=== PATIENT | female | born 1990 | race Caucasian/White ===

== ENCOUNTER 2018-08-02 13:24 | Inpatient (IN) | payer BC ==
[~2018-08-02 13:24] MED LIST: Lidocaine 2% MPF 10 ML AMP (For Epidural Use) ONE
[2018-08-02] MEDS ORDERED: Zolpidem Tartrate 5 MG TAB PO PRN (21:42)
[2018-08-02] MEDS ORDERED: Misoprostol 200 MCG TAB PR PRN (21:42)
[2018-08-02] MEDS ORDERED: HYDROcodone/Acetaminophen 5/325 mg Tablet PO PRN ×2 (21:42)
[2018-08-02] MEDS ORDERED: NS w/ Oxytocin 10 units 500 ML IV SCH (21:42)
[2018-08-02] MEDS ORDERED: NS / Oxytocin 40 units/1000ml 1,000 ML IV PRN (21:42)
[2018-08-02] MEDS ORDERED: Ibuprofen 800 MG TAB PO PRN (21:42)
[2018-08-02] MEDS ORDERED: Promethazine HCl 25 MG/ML VIAL IM PRN (21:42)
[2018-08-02] MEDS ORDERED: Docusate 100 MG CAP PO PRN (21:42)
[2018-08-02] MEDS ORDERED: Lidocaine 1% (PF) 30 ML VIAL SC PRN (21:42)
[2018-08-02] MEDS ORDERED: Diphenoxylate HCl/Atropine Tablet PO PRN ×2 (21:42)
[2018-08-02] MEDS ORDERED: Acetaminophen 500 MG TAB PO PRN (21:42)
[2018-08-02] MEDS ORDERED: Butorphanol Tartrate 1 MG/ML VIAL SLOW IVP PRN (21:42)
[2018-08-02 22:04] VITALS: BMI 35.9
[2018-08-02] MEDS: Misoprostol 100 MCG TAB VAG SCH (22:26)
[2018-08-02 22:28] LABS: Hemoglobin 10.6 g/dL (12.0-16.0); Mean Corpuscular HGB CONC 34.1 g/dL (32.0-36.0); Mean Corpuscular Hemoglobin 25.9 pg (27.0-31.0); Mean Platelet Volume 9.5 fL (7.4-10.4); Platelet Count 277 thou/uL (130-400); RBC Distribution Width 21.7 % (11.5-14.5); White Blood Cell (WBC) Count 9.3 thou/uL (4.8-10.8)
[2018-08-02] MEDS: Lactated Ringer's 1,000 ML IV SCH (22:33)
[2018-08-02 23:03] LABS: HBSAg Index 0.13 S/CO (0-0.99); Hep B Surf Ag Non-Reactive S/CO (NonReactive); Syphilis Antibody Nonreactive (Nonreactive); Syphilis Antibody Index 0.02 S/CO (<1.00 Non-Reactive)
[2018-08-03] MEDS ORDERED: DISCONTINUE ALL PREVIOUS NARCOTICS FS SCH (02:45)
[2018-08-03] MEDS ORDERED: Lidocaine 1% PF 5 ML VIAL ONE (03:02)
[2018-08-03] MEDS ORDERED: Naloxone HCl 0.4 mg/ml Vial IVP PRN ×2 (03:30)
[2018-08-03] MEDS ORDERED: Promethazine HCl 25 MG/ML VIAL IM PRN (03:30)
[2018-08-03] MEDS ORDERED: Ondansetron HCl/PF 4 MG/2 ML Vial IVP PRN ×2 (03:30→18:03)
[2018-08-03] MEDS ORDERED: Acetaminophen 325 MG TAB PO PRN (03:30)
[2018-08-03] MEDS ORDERED: diphenhydrAMINE 50 MG/ML VIAL IVP PRN (03:30)
[2018-08-03] MEDS ORDERED: Lactated Ringer's 500 ML IV PRN (03:30)
[2018-08-03] MEDS ORDERED: Hydrocerin (Eucerin) Cream 120 gm Jar TOP PRN (03:30)
[2018-08-03] MEDS ORDERED: ePHEDrine/0.9% NaCl/PF SYRINGE 50 mg/10 ml SLOW IVP PRN (03:30)
[2018-08-03] MEDS ORDERED: fentaNYL Citrate/PF 400 MCG, Bupivacaine 0.5% 20 ML in Sodium Chloride 0.9% 72 ML EPIDURAL SCH (03:30)
[2018-08-03] MEDS ORDERED: Communication Order-Pharmacy FS SCH (03:30)
[2018-08-03] MEDS: Bupivacaine 0.5% 20 ML, fentaNYL Citrate/PF 400 MCG in Sodium Chloride 0.9% 72 ML EPIDURAL SCH ×4 (03:49→17:05)
[2018-08-03] MEDS: Lactated Ringer's 1,000 ML IV SCH ×2 (03:50→12:30)
[2018-08-03] MEDS: Misoprostol 100 MCG TAB VAG SCH (05:49)
[2018-08-03] MEDS: Ondansetron HCl/PF 4 MG/2 ML Vial IVP PRN ×2 (08:37→14:50)
[2018-08-03] MEDS ORDERED: Benzocaine/Menthol 20-0.5% 60 ML CAN TOP PRN (18:03)
[2018-08-03] MEDS ORDERED: Acetaminophen/Codeine 30-300mg Tablet PO PRN (18:03)
[2018-08-03] MEDS ORDERED: diphenhydrAMINE 25 MG CAP PO PRN (18:03)
[2018-08-03] MEDS ORDERED: Zolpidem Tartrate 5 MG TAB PO PRN (18:03)
[2018-08-03] MEDS ORDERED: Lanolin Ointment 7 GM TUBE TOP PRN (18:03)
[2018-08-03] MEDS ORDERED: Bisacodyl 10 MG SUPP PR PRN (18:03)
[2018-08-03] MEDS ORDERED: Milk Of Magnesia 30 ML UDCUP PO PRN (18:03)
[2018-08-03] MEDS ORDERED: Adacel (T-DAP) 0.5 ML VIAL IM ONE (18:03)
[2018-08-03] MEDS ORDERED: Preparation H Ointment 28 GM TUBE PR PRN (18:03)
[2018-08-03] MEDS ORDERED: Misoprostol 200 MCG TAB VAG SCH (18:15)
[2018-08-03] MEDS ORDERED: NS / Oxytocin 40 units/1000ml 1,000 ML IV SCH (18:15)
[2018-08-03] MEDS ORDERED: Misoprostol 200 MCG TAB ONE (18:23)
[2018-08-04] MEDS: Misoprostol 100 MCG TAB VAG SCH ×2 (00:02→00:03)
[2018-08-04] MEDS: Docusate Calcium (SURFAK) 240 MG CAP PO SCH ×3 (02:20→20:43)
[2018-08-04] MEDS: Ibuprofen 800 MG TAB PO SCH ×4 (02:20→20:43)
[2018-08-04 05:53] LABS: Hemoglobin 9.4 g/dL (12.0-16.0); Mean Corpuscular HGB CONC 32.3 g/dL (32.0-36.0); Mean Corpuscular Hemoglobin 25.1 pg (27.0-31.0); Mean Corpuscular Volume 77.7 fL (78.0-98.0); Mean Platelet Volume 8.8 fL (7.4-10.4); Platelet Count 204 thou/uL (130-400); RBC Distribution Width 21.4 % (11.5-14.5); Red Blood Cell (RBC) Count 3.74 mill/uL (4.20-5.40); White Blood Cell (WBC) Count 11.4 thou/uL (4.8-10.8)
[2018-08-04] MEDS: Acetaminophen/Codeine 30-300mg Tablet PO PRN ×4 (06:15→21:42)
[2018-08-04] MEDS: Prenatal Vitamin 1 TAB PO SCH (09:36)
[2018-08-04] MEDS: Ferrous Sulfate 325 MG TAB PO SCH ×2 (09:36→17:20)
[2018-08-05] MEDS: Ibuprofen 800 MG TAB PO SCH ×2 (05:56→14:59)
[2018-08-05 07:41] VITALS: TEMP 98.2
[2018-08-05] MEDS: Docusate Calcium (SURFAK) 240 MG CAP PO SCH (09:30)
[2018-08-05] MEDS: Prenatal Vitamin 1 TAB PO SCH (09:30)
[2018-08-05] MEDS: Ferrous Sulfate 325 MG TAB PO SCH (09:30)
[2018-08-05] MEDS: Acetaminophen/Codeine 30-300mg Tablet PO PRN (11:08)
[2018-08-05 12:38] VITALS: BP 159/82
== END 2018-08-05 16:25 | disposition home or self-care (01) | DRG 774 ==
LOC: L&D 21:17 → 3SW 08-03 20:35 → EDSTATUS 08-20 13:23
PROVIDERS: ADMIT Obstetrics & Gynecology; ATTEND Obstetrics & Gynecology
PROC: 10E0XZZ Delivery of Products of Conception, External Approach (ICD-10-PCS; principal; 2018-08-02)
DX: O76 Abnormality in fetal heart rate and rhythm complicating labor and delivery (principal); O10.92 Unspecified pre-existing hypertension complicating childbirth; Z3A.37 37 weeks gestation of pregnancy; O66.0 Obstructed labor due to shoulder dystocia; O69.81X0 Labor and delivery complicated by cord around neck, without compression, not applicable or unspecified; Z37.0 Single live birth
CPT/HCPCS: 36415; 51702; 85027; 86780; 86850; 86900; 86901; 87340; J2001; J2405; J3010; J3490; J7050

== ENCOUNTER 2020-10-16 07:55 | Emergency (ER) | payer BC ==
[2020-10-16 08:33] LABS: #Lymphocytes 2.1 thou/uL (1.20-3.40); #Monocytes 0.4 thou/uL (0.11-0.59); #Neutrophils 3.1 thou/uL (1.40-6.50); %Basophils 0.1 % (0.0-1.0); %Eosinophils 0.1 % (0.0-10.0); %Neutrophils 54.8 % (42.0-75.0); Hemoglobin 12.8 g/dL (12.0-16.0); Mean Corpuscular HGB CONC 34.7 g/dL (32.0-36.0); Mean Corpuscular Hemoglobin 28.1 pg (27.0-31.0); Mean Corpuscular Volume 81.1 fL (78.0-98.0); Mean Platelet Volume 7.1 fL (7.4-10.4); Platelet Count 260 thou/uL (130-400); RBC Distribution Width 11.7 % (11.5-14.5); Red Blood Cell (RBC) Count 4.55 mill/uL (4.20-5.40); White Blood Cell (WBC) Count 5.6 thou/uL (4.8-10.8)
[2020-10-16 08:34] LABS: Bilirubin Negative (Negative); Blood, Urine 1+ (Negative); Clarity Clear (Clear); Glucose, Urine (Dipstick) Normal (Negative); Ketone, Urine Negative (Negative); Leukocyte 25 Leu/uL (Negative); Nitrite Negative (Negative); Protein, Urine (Dipstick) Negative (Neg-Trace); RBC/HPF 0-3 HPF (0-3); Specific Gravity, Urine 1.016 (1.002-1.036); Squamous Epithelial 0-3 HPF (0-3); Urobilinogen Normal mg/dL (Less than 2); WBC/HPF 0-3 HPF (0-3); pH, Urine 5.5 (5.0-9.0)
[2020-10-16 08:47] LABS: Bacteria/HPF 1+ HPF (None Seen)
[2020-10-16 08:49] LABS: Pregnancy Test - Urine (BHCG) POSITIVE (Negative); Pregu Control Background? CLEAR/WHITE (CLR/WHITE); Pregu Control Bar Appear? YES (CONTROL BAR); Specific Gravity 1.016 (1.002-1.036)
== END 2020-10-16 09:42 | disposition home or self-care (01) ==
LOC: ERS 07:55
DX: O20.0 Threatened abortion (principal); O16.2 Unspecified maternal hypertension, second trimester; Z79.899 Other long term (current) drug therapy; Z3A.17 17 weeks gestation of pregnancy
CPT/HCPCS: 36415; 81003; 81015; 81025; 84702; 85025; 86900; 86901; 87635; 99284; U0003

== ENCOUNTER 2020-10-19 16:07 | Inpatient (IN) | payer BC ==
[2020-10-19 17:07] VITALS: BMI 24.8
[2020-10-19 17:22] VITALS: BP 124/84; TEMP 98.7
[2020-10-19] MEDS ORDERED: Misoprostol 200 MCG TAB ONE (18:28)
[2020-10-19] MEDS ORDERED: NS / Oxytocin 40 units/1000ml 1,000 ML IV PRN (18:43)
[2020-10-19] MEDS ORDERED: Ibuprofen 800 MG TAB PO PRN (18:43)
[2020-10-19] MEDS ORDERED: Misoprostol 200 MCG TAB PR SCH (18:43)
[2020-10-19] MEDS ORDERED: HYDROcodone/Acetaminophen 5/325 mg Tablet PO PRN (18:43)
[2020-10-19] MEDS ORDERED: hydrALAZINE 20 MG/ML VIAL SLOW IVP PRN (18:43)
[2020-10-19] MEDS ORDERED: Carboprost 250 MCG/ML AMP IM PRN (18:43)
[2020-10-19] MEDS ORDERED: Diphenoxylate HCl/Atropine Tablet PO PRN (18:43)
[2020-10-19] MEDS ORDERED: Ondansetron PF 4 MG/2 ML Vial IVP PRN (18:43)
[2020-10-19] MEDS ORDERED: Promethazine HCl 25 MG/ML VIAL IM PRN (18:43)
[2020-10-19] MEDS ORDERED: Lidocaine 1% (PF) 30 ML VIAL SC PRN (18:43)
[2020-10-19] MEDS ORDERED: Zolpidem Tartrate 5 MG TAB PO PRN (18:43)
[2020-10-19] MEDS ORDERED: Methylergonovine 0.2 MG/ML VIAL IM PRN (18:43)
[2020-10-19] MEDS ORDERED: Acetaminophen 500 MG TAB PO PRN (18:43)
[2020-10-19] MEDS ORDERED: ALPRAZolam 1 MG TAB PO PRN (18:50)
[2020-10-19 19:29] LABS: Hemoglobin 13.1 g/dL (12.0-16.0); Mean Corpuscular HGB CONC 35.3 g/dL (32.0-36.0); Mean Corpuscular Hemoglobin 28.1 pg (27.0-31.0); Mean Corpuscular Volume 79.7 fL (78.0-98.0); Mean Platelet Volume 7.3 fL (7.4-10.4); Platelet Count 296 thou/uL (130-400); RBC Distribution Width 11.7 % (11.5-14.5); Red Blood Cell (RBC) Count 4.67 mill/uL (4.20-5.40); White Blood Cell (WBC) Count 9.1 thou/uL (4.8-10.8)
[2020-10-19] MEDS ORDERED: Misoprostol 200 MCG TAB VAG SCH (19:30)
[2020-10-19 20:06] LABS: Syphilis Antibody Nonreactive (Nonreactive); Syphilis Antibody Index 0.04 S/CO (<1.00 Non-Reactive)
[2020-10-19] MEDS: Lactated Ringer's 1,000 ML IV SCH ×2 (20:07→21:59)
[2020-10-19] MEDS: ceFAZolin 1 GM/D5W 1 GM in Premix Bag 1 BAG IVPB SCH (20:07)
[2020-10-19 22:25] LABS: HBSAg Index 0.18 S/CO (0-0.99); Hep B Surf Ag Non-Reactive S/CO (NonReactive)
[2020-10-19] MEDS: Misoprostol 200 MCG TAB VAG SCH (22:35)
[2020-10-19] MEDS: Butorphanol Tartrate 1 MG/ML VIAL SLOW IVP PRN (22:41)
[2020-10-20] MEDS: Butorphanol Tartrate 1 MG/ML VIAL SLOW IVP PRN ×2 (00:32→03:27)
--- NOTE | 2020-10-20 02:20 | PDOC.BPN ---
- Brief Progress Note OBGYN [facility] Specialist [id number]ked [address] livingston (via RN) to check on patient s/p 17 week AB delivery. Placenta in situ. With elisabeth SAUCEDO assistence I was able to see some placental tissue expell but some still remains in situ. I discussed with the patient and partner that complete expulsion may take minutes to 1-2 hrs. EBL about 200ml at max so far with no active VB. We will give the next cytotec dose which was NOW (400mcg) to help with expulsion and track blood loss. I beliebe some tissue remains.
[2020-10-20] MEDS: Misoprostol 200 MCG TAB VAG SCH (02:38)
--- NOTE | 2020-10-20 03:11 | PDOC.BPN ---
- Brief Progress Note Called for VB. [id number] Placental delivery/extraction Placed patient in lithotomy and used a lighted spec. Able to see cord in cervix. used rings to pull placenta intact from ANA. Preprocedure bedside sono confirmed it was in ANA. EBL total is 500ml. Placenta to path. Check HH No VB now Dr Mcgarry aware. Patient stable
[2020-10-20] MEDS: ceFAZolin 1 GM/D5W 1 GM in Premix Bag 1 BAG IVPB SCH (04:29)
[2020-10-20] MEDS: Lactated Ringer's 1,000 ML IV SCH (06:31)
[2020-10-20 06:38] LABS: Hemoglobin 10.7 g/dL (12.0-16.0)
[2020-10-20 08:57] LABS: Hemoglobin 9.6 g/dL (12.0-16.0); Mean Corpuscular HGB CONC 34.5 g/dL (32.0-36.0); Mean Corpuscular Hemoglobin 28.2 pg (27.0-31.0); Mean Corpuscular Volume 81.6 fL (78.0-98.0); Mean Platelet Volume 6.9 fL (7.4-10.4); Platelet Count 197 thou/uL (130-400); RBC Distribution Width 11.6 % (11.5-14.5); White Blood Cell (WBC) Count 6.1 thou/uL (4.8-10.8)
[2020-10-20] MEDS ORDERED: FLU VACC QS2020-21(6MOS UP)/PF 60 MCG/0.5 ML SYRINGE IM ONE (09:00)
== END 2020-10-20 11:50 | disposition home or self-care (01) | DRG 779 ==
LOC: L&D 16:07
PROVIDERS: ADMIT Obstetrics & Gynecology; ATTEND Obstetrics & Gynecology
PROC: 10D17Z9 Manual Extraction of Products of Conception, Retained, Via Natural or Artificial Opening (ICD-10-PCS; principal; 2020-10-20)
PROC: 3E0P7VZ Introduction of Hormone into Female Reproductive, Via Natural or Artificial Opening (ICD-10-PCS; 2020-10-20)
DX: O02.1 Missed abortion (principal); I10 Essential (primary) hypertension; Z79.899 Other long term (current) drug therapy; Z88.2 Allergy status to sulfonamides; Z20.828 Contact with and (suspected) exposure to other viral communicable diseases
CPT/HCPCS: 36415; 81003; 81015; 81025; 84702; 85014; 85018; 85025; 85027; 86780; 86850; 86900; 86901; 87340; 87635; 99284; J0595; J0690; U0003